=== PATIENT | female | born 1960 | race Caucasian/White ===

== ENCOUNTER 2022-12-24 07:06 | Inpatient (IN) | payer MEDICARE ==
[2022-12-24] MEDS ORDERED: ACETAMINOPHEN 325 MG TABLET (FP) PO ONE (07:57)
[2022-12-24] MEDS ORDERED: KETOROLAC TROMETHAMINE 15 MG/ML VIAL IM ONE (07:57)
[2022-12-24] MEDS ORDERED: LIDOCAINE 5% TOPICAL PATCH TP ONE (08:14)
[2022-12-24] MEDS ORDERED: LIDOCAINE 5% TOPICAL PATCH ONE (08:26)
[2022-12-24] MEDS ORDERED: morphine CARPU-JECT 4 MG/1 ML DISP.SYRIN IVPUSH ONE (09:33)
[2022-12-24] MEDS ORDERED: morphine SULFATE 4 MG/ML VIAL ONE (10:15)
[2022-12-24] MEDS ORDERED: morphine CARPU-JECT 2 MG/1 ML DISP.SYRIN IVPUSH ONE (12:24)
[2022-12-24 13:06] LABS: BASO % 0.3 % (0-2.0); EOS % 0.6 % (0-4.5); HEMATOCRIT 23.4 % (32.4-45.2); HEMOGLOBIN 8.1 GM/dL (10.7-15.3); LYMPH % 6.2 % (8-40); MCH 28.5 pg (25.7-33.7); MCHC 34.6 g/dl (32.0-36.0); MEAN CELL VOLUME 82.4 fl (80-96); MEAN PLT VOLUME 7.5 fl (7.5-11.1); MONO % 8.4 % (3.8-10.2); NEUT % 84.5 % (42.8-82.8); PLATELET COUNT 219 10^3/uL (134-434); RBC 2.84 M/mm3 (3.60-5.2); RDW 15.3 % (11.6-15.6)
[2022-12-24 13:13] LABS: INR 1.31 (0.83-1.09); PROTHROMBIN TIME (PATIENT) 15.2 SEC (9.7-13.0)
[2022-12-24 13:15] LABS: ACTIVATED PTT 28.5 SECONDS (25.2-36.5)
[2022-12-24 13:19] LABS: ALBUMIN 2.7 g/dl (3.4-5.0)
[2022-12-24 13:22] LABS: CREATININE 0.6 mg/dL (0.55-1.3)
[2022-12-24 13:24] LABS: TOT PROT 5.3 g/dl (6.4-8.2)
[2022-12-24 13:25] LABS: BLOOD UREA NITROGEN 14.2 mg/dL (7-18)
[2022-12-24] MEDS ORDERED: traMADol HCL 50 MG TABLET PO PRN (15:13)
[2022-12-24] MEDS: DEXAMETHASONE SOD PHOSPHATE 4 MG/1 ML VIAL IVPUSH SCH ×2 (16:55→21:43)
[2022-12-24] MEDS: FERROUS SO4 325 MG TABLET (FP) PO SCH (21:43)
[2022-12-24] MEDS: LIDOCAINE PATCH REMOVAL MC SCH (23:08)
[2022-12-25] MEDS ORDERED: ACETAMINOPHEN 500 MG TABLET (FP) PO PRN ×2 (07:40→10:32)
[2022-12-25] MEDS ORDERED: methylPREDNISolone 8 MG TABLET PO ONE ×2 (08:53→20:00)
[2022-12-25] MEDS ORDERED: methylPREDNISolone 4 MG TABLET PO ONE ×4 (09:30→22:00)
[2022-12-25] MEDS ORDERED: CARVEDILOL 6.25 MG TABLET (FP) PO SCH ×2 (10:00)
[2022-12-25 10:02] LABS: BASO % 0.1 % (0-2.0); EOS % 0.1 % (0-4.5); HEMATOCRIT 24.9 % (32.4-45.2); HEMOGLOBIN 8.9 GM/dL (10.7-15.3); LYMPH % 4.5 % (8-40); MCH 29.4 pg (25.7-33.7); MCHC 35.9 g/dl (32.0-36.0); MEAN CELL VOLUME 82.1 fl (80-96); MEAN PLT VOLUME 7.7 fl (7.5-11.1); MONO % 5.5 % (3.8-10.2); NEUT % 89.8 % (42.8-82.8); PLATELET COUNT 262 10^3/uL (134-434); RBC 3.04 M/mm3 (3.60-5.2); RDW 15.1 % (11.6-15.6); WHITE BLOOD COUNT 5.7 K/mm3 (4.0-10.0)
[2022-12-25] MEDS ORDERED: KETOROLAC TROMETHAMINE 30 MG/1 ML VIAL IVPUSH PRN (10:31)
[2022-12-25 10:38] LABS: CALCIUM 8.9 mg/dL (8.5-10.1)
[2022-12-25 10:39] LABS: BLOOD UREA NITROGEN 10.7 mg/dL (7-18)
[2022-12-25 10:42] LABS: CREATININE 0.6 mg/dL (0.55-1.3)
[2022-12-25] MEDS: ENOXAPARIN NA (PORCINE) 40 MG/0.4 ML DISP.SYRIN SQ SCH (11:18)
[2022-12-25] MEDS: CARVEDILOL 6.25 MG TABLET (FP) PO SCH ×2 (11:19→21:01)
[2022-12-25] MEDS: SPIRONOLACTONE 25 MG TABLET PO SCH (11:19)
[2022-12-25] MEDS: FOLIC ACID 1 MG TABLET (FP) PO SCH (11:19)
[2022-12-25] MEDS: FERROUS SO4 325 MG TABLET (FP) PO SCH ×2 (11:19→21:02)
[2022-12-25] MEDS: traMADol HCL 50 MG TABLET PO PRN (11:20)
[2022-12-25] MEDS: ENALAPRIL MALEATE 5 MG TABLET PO SCH (11:21)
[2022-12-25] MEDS: LIDOCAINE 5% TOPICAL PATCH TP SCH (11:21)
[2022-12-25] MEDS: KETOROLAC TROMETHAMINE 30 MG/1 ML VIAL IVPUSH SCH ×2 (14:27→21:02)
[2022-12-25] MEDS: ACETAMINOPHEN 500 MG TABLET (FP) PO SCH (14:29)
[2022-12-25] MEDS ORDERED: INSULIN (NOVOLOG) ASPART 100 UNITS/ML 10ML VIAL ONE (19:02)
[2022-12-25] MEDS: LIDOCAINE PATCH REMOVAL MC SCH (21:02)
[2022-12-26] MEDS: ACETAMINOPHEN 500 MG TABLET (FP) PO SCH ×5 (01:20→23:27)
[2022-12-26] MEDS: KETOROLAC TROMETHAMINE 30 MG/1 ML VIAL IVPUSH SCH ×4 (03:11→22:10)
[2022-12-26 06:35] LABS: BASO % 0.2 % (0-2.0); EOS % 0.1 % (0-4.5); HEMATOCRIT 21.7 % (32.4-45.2); HEMOGLOBIN 7.6 GM/dL (10.7-15.3); LYMPH % 5.2 % (8-40); MCH 28.9 pg (25.7-33.7); MCHC 35.1 g/dl (32.0-36.0); MEAN CELL VOLUME 82.3 fl (80-96); MEAN PLT VOLUME 8.2 fl (7.5-11.1); NEUT % 88.5 % (42.8-82.8); PLATELET COUNT 222 10^3/uL (134-434); RBC 2.63 M/mm3 (3.60-5.2); RDW 15.2 % (11.6-15.6); WHITE BLOOD COUNT 5.6 K/mm3 (4.0-10.0)
[2022-12-26] MEDS: traMADol HCL 50 MG TABLET PO PRN (06:43)
[2022-12-26 07:02] LABS: CALCIUM 8.7 mg/dL (8.5-10.1)
[2022-12-26 07:03] LABS: ALBUMIN 2.5 g/dl (3.4-5.0); BLOOD UREA NITROGEN 18.8 mg/dL (7-18)
[2022-12-26 07:06] LABS: CREATININE 0.7 mg/dL (0.55-1.3)
[2022-12-26 07:07] LABS: BILIRUBIN,TOTAL 0.8 mg/dL (0.2-1); TOT PROT 4.9 g/dl (6.4-8.2)
[2022-12-26] MEDS ORDERED: methylPREDNISolone 4 MG TABLET PO ONE ×2 (09:04→12:00)
[2022-12-26] MEDS ORDERED: morphine CARPU-JECT 2 MG/1 ML DISP.SYRIN IVPUSH PRN (09:16)
[2022-12-26] MEDS: ENOXAPARIN NA (PORCINE) 40 MG/0.4 ML DISP.SYRIN SQ SCH (10:03)
[2022-12-26] MEDS: CARVEDILOL 6.25 MG TABLET (FP) PO SCH ×2 (10:04→22:10)
[2022-12-26] MEDS: FOLIC ACID 1 MG TABLET (FP) PO SCH (10:04)
[2022-12-26] MEDS: SPIRONOLACTONE 25 MG TABLET PO SCH (10:04)
[2022-12-26] MEDS: LIDOCAINE 5% TOPICAL PATCH TP SCH (10:04)
[2022-12-26] MEDS: ENALAPRIL MALEATE 5 MG TABLET PO SCH (10:04)
[2022-12-26] MEDS: FERROUS SO4 325 MG TABLET (FP) PO SCH ×2 (10:04→22:10)
[2022-12-26] MEDS: POLYETHYLENE GLYCOL (HEALTHYLAX) 3350 17 GM PACKET PO SCH (12:23)
[2022-12-26] MEDS: COLLAGENASE CLOSTRIDIUM HIST. 30 GRAMS TUBE TP SCH (13:47)
[2022-12-26] MEDS: CYCLOBENZAPRINE HCL 5 MG TABLET PO SCH ×2 (13:47→22:10)
[2022-12-26] MEDS ORDERED: methylPREDNISolone 4 MG TABLET PO SCH (18:00)
[2022-12-26] MEDS ORDERED: methylPREDNISolone 8 MG TABLET PO ONE (22:00)
[2022-12-26] MEDS: LIDOCAINE PATCH REMOVAL MC SCH (22:11)
[2022-12-27] MEDS: KETOROLAC TROMETHAMINE 30 MG/1 ML VIAL IVPUSH SCH ×2 (02:08→08:45)
[2022-12-27] MEDS: CYCLOBENZAPRINE HCL 5 MG TABLET PO SCH ×3 (06:00→21:54)
[2022-12-27] MEDS: ACETAMINOPHEN 500 MG TABLET (FP) PO SCH ×4 (06:00→23:01)
[2022-12-27] MEDS: morphine SULFATE IMMEDIATE RELEASE 30 MG TAB PO PRN ×3 (06:50→21:53)
[2022-12-27 07:46] LABS: BASO % 0.2 % (0-2.0); EOS % 0.1 % (0-4.5); HEMATOCRIT 24.6 % (32.4-45.2); HEMOGLOBIN 8.5 GM/dL (10.7-15.3); LYMPH % 6.2 % (8-40); MCH 28.6 pg (25.7-33.7); MCHC 34.8 g/dl (32.0-36.0); MEAN CELL VOLUME 82.2 fl (80-96); MEAN PLT VOLUME 8.3 fl (7.5-11.1); MONO % 6.3 % (3.8-10.2); NEUT % 87.2 % (42.8-82.8); PLATELET COUNT 236 10^3/uL (134-434); RBC 2.99 M/mm3 (3.60-5.2); RDW 14.8 % (11.6-15.6); WHITE BLOOD COUNT 5.9 K/mm3 (4.0-10.0)
[2022-12-27 08:28] LABS: CALCIUM 8.7 mg/dL (8.5-10.1)
[2022-12-27 08:29] LABS: ALBUMIN 2.7 g/dl (3.4-5.0); BLOOD UREA NITROGEN 23.4 mg/dL (7-18)
[2022-12-27 08:31] LABS: CREATININE 0.8 mg/dL (0.55-1.3)
[2022-12-27 08:33] LABS: BILIRUBIN,TOTAL 0.5 mg/dL (0.2-1); TOT PROT 5.1 g/dl (6.4-8.2)
[2022-12-27] MEDS ORDERED: methylPREDNISolone 4 MG TABLET PO ONE ×4 (08:53→22:00)
[2022-12-27] MEDS: FOLIC ACID 1 MG TABLET (FP) PO SCH (09:38)
[2022-12-27] MEDS: POLYETHYLENE GLYCOL (HEALTHYLAX) 3350 17 GM PACKET PO SCH (09:38)
[2022-12-27] MEDS: FERROUS SO4 325 MG TABLET (FP) PO SCH ×2 (09:38→21:54)
[2022-12-27] MEDS: CARVEDILOL 6.25 MG TABLET (FP) PO SCH ×2 (09:38→21:54)
[2022-12-27] MEDS: SPIRONOLACTONE 25 MG TABLET PO SCH (09:38)
[2022-12-27] MEDS: ENALAPRIL MALEATE 5 MG TABLET PO SCH (09:39)
[2022-12-27] MEDS: ENOXAPARIN NA (PORCINE) 40 MG/0.4 ML DISP.SYRIN SQ SCH (09:45)
[2022-12-27] MEDS: LIDOCAINE 5% TOPICAL PATCH TP SCH (09:46)
[2022-12-27] MEDS: COLLAGENASE CLOSTRIDIUM HIST. 30 GRAMS TUBE TP SCH (10:31)
[2022-12-27] MEDS: traMADol HCL 50 MG TABLET PO PRN (13:18)
[2022-12-27] MEDS: NAPROXEN 375 MG TABLET PO SCH ×2 (13:41→21:53)
[2022-12-27] MEDS: LIDOCAINE PATCH REMOVAL MC SCH (21:54)
[2022-12-28] MEDS: morphine SULFATE IMMEDIATE RELEASE 30 MG TAB PO PRN ×4 (03:55→21:57)
[2022-12-28] MEDS: traMADol HCL 50 MG TABLET PO PRN ×2 (05:24→13:48)
[2022-12-28] MEDS: CYCLOBENZAPRINE HCL 5 MG TABLET PO SCH ×3 (05:24→21:57)
[2022-12-28] MEDS: ACETAMINOPHEN 500 MG TABLET (FP) PO SCH ×4 (05:25→23:05)
[2022-12-28] MEDS: methylPREDNISolone 4 MG TABLET PO SCH ×3 (05:25→21:58)
[2022-12-28 07:52] LABS: HEMATOCRIT 27.4 % (32.4-45.2); HEMOGLOBIN 9.2 GM/dL (10.7-15.3); MCHC 33.6 g/dl (32.0-36.0); MEAN CELL VOLUME 83.3 fl (80-96); MEAN PLT VOLUME 8.1 fl (7.5-11.1); PLATELET COUNT 280 10^3/uL (134-434); RBC 3.29 M/mm3 (3.60-5.2); RDW 15.4 % (11.6-15.6); WHITE BLOOD COUNT 7.7 K/mm3 (4.0-10.0)
[2022-12-28 08:15] LABS: CALCIUM 8.8 mg/dL (8.5-10.1)
[2022-12-28 08:16] LABS: BLOOD UREA NITROGEN 21.5 mg/dL (7-18)
[2022-12-28 08:18] LABS: ALBUMIN 2.8 g/dl (3.4-5.0)
[2022-12-28 08:19] LABS: CREATININE 0.7 mg/dL (0.55-1.3)
[2022-12-28 08:20] LABS: TOT PROT 5.3 g/dl (6.4-8.2)
[2022-12-28 08:21] LABS: BILIRUBIN,TOTAL 0.5 mg/dL (0.2-1)
[2022-12-28] MEDS: POLYETHYLENE GLYCOL (HEALTHYLAX) 3350 17 GM PACKET PO SCH (09:07)
[2022-12-28] MEDS: LIDOCAINE 5% TOPICAL PATCH TP SCH (09:07)
[2022-12-28] MEDS: CARVEDILOL 6.25 MG TABLET (FP) PO SCH ×2 (09:08→21:58)
[2022-12-28] MEDS: ENALAPRIL MALEATE 5 MG TABLET PO SCH (09:08)
[2022-12-28] MEDS: NAPROXEN 375 MG TABLET PO SCH ×2 (09:08→21:58)
[2022-12-28] MEDS: SPIRONOLACTONE 25 MG TABLET PO SCH (09:08)
[2022-12-28] MEDS: FERROUS SO4 325 MG TABLET (FP) PO SCH ×2 (09:08→21:57)
[2022-12-28] MEDS: ENOXAPARIN NA (PORCINE) 40 MG/0.4 ML DISP.SYRIN SQ SCH (09:08)
[2022-12-28] MEDS: FOLIC ACID 1 MG TABLET (FP) PO SCH (09:08)
[2022-12-28] MEDS: COLLAGENASE CLOSTRIDIUM HIST. 30 GRAMS TUBE TP SCH (09:09)
[2022-12-28] MEDS ORDERED: SODIUM ZIRCONIUM CYCLOSILICATE (LOKELMA) 5 GM PACKET PO ONE (14:15)
[2022-12-28] MEDS: LIDOCAINE PATCH REMOVAL MC SCH (21:58)
[2022-12-29] MEDS: morphine SULFATE IMMEDIATE RELEASE 30 MG TAB PO PRN ×4 (02:43→22:29)
[2022-12-29] MEDS: ACETAMINOPHEN 500 MG TABLET (FP) PO SCH ×4 (06:42→23:08)
[2022-12-29] MEDS: CYCLOBENZAPRINE HCL 5 MG TABLET PO SCH ×3 (06:42→22:27)
[2022-12-29] MEDS: methylPREDNISolone 4 MG TABLET PO SCH ×2 (06:44→13:13)
[2022-12-29 08:56] LABS: BASO % 0.4 % (0-2.0); EOS % 0.9 % (0-4.5); HEMATOCRIT 29.9 % (32.4-45.2); HEMOGLOBIN 10.2 GM/dL (10.7-15.3); LYMPH % 4.4 % (8-40); MCH 28.7 pg (25.7-33.7); MCHC 34.1 g/dl (32.0-36.0); MEAN CELL VOLUME 84.2 fl (80-96); MEAN PLT VOLUME 8.1 fl (7.5-11.1); MONO % 5.8 % (3.8-10.2); NEUT % 88.5 % (42.8-82.8); PLATELET COUNT 325 10^3/uL (134-434); RBC 3.55 M/mm3 (3.60-5.2); RDW 15.7 % (11.6-15.6); WHITE BLOOD COUNT 9.4 K/mm3 (4.0-10.0)
[2022-12-29 09:10] LABS: ALBUMIN 2.9 g/dl (3.4-5.0); BLOOD UREA NITROGEN 20.9 mg/dL (7-18); CALCIUM 8.6 mg/dL (8.5-10.1)
[2022-12-29 09:13] LABS: CREATININE 0.8 mg/dL (0.55-1.3)
[2022-12-29 09:15] LABS: BILIRUBIN,TOTAL 0.6 mg/dL (0.2-1); TOT PROT 5.3 g/dl (6.4-8.2)
[2022-12-29] MEDS: LIDOCAINE 5% TOPICAL PATCH TP SCH (09:33)
[2022-12-29] MEDS: POLYETHYLENE GLYCOL (HEALTHYLAX) 3350 17 GM PACKET PO SCH ×3 (09:33→22:27)
[2022-12-29] MEDS: FOLIC ACID 1 MG TABLET (FP) PO SCH (09:34)
[2022-12-29] MEDS: ENALAPRIL MALEATE 5 MG TABLET PO SCH (09:34)
[2022-12-29] MEDS: CARVEDILOL 6.25 MG TABLET (FP) PO SCH ×2 (09:34→22:27)
[2022-12-29] MEDS: FERROUS SO4 325 MG TABLET (FP) PO SCH ×2 (09:34→22:27)
[2022-12-29] MEDS: ENOXAPARIN NA (PORCINE) 40 MG/0.4 ML DISP.SYRIN SQ SCH (09:34)
[2022-12-29] MEDS: NAPROXEN 375 MG TABLET PO SCH ×2 (09:35→22:28)
[2022-12-29] MEDS: COLLAGENASE CLOSTRIDIUM HIST. 30 GRAMS TUBE TP SCH (09:36)
[2022-12-29] MEDS: SENNOSIDES 8.6MG TABLET (FP) PO SCH ×2 (11:40→22:27)
[2022-12-29] MEDS: DOCUSATE SODIUM 100 MG CAPSULE (FP) PO SCH ×2 (13:09→22:27)
[2022-12-29] MEDS: traMADol HCL 50 MG TABLET PO PRN (15:50)
[2022-12-29] MEDS ORDERED: methylPREDNISolone 4 MG TABLET PO SCH (22:00)
[2022-12-29] MEDS: LIDOCAINE PATCH REMOVAL MC SCH (22:27)
[2022-12-30] MEDS: morphine SULFATE IMMEDIATE RELEASE 30 MG TAB PO PRN ×2 (03:06→21:34)
[2022-12-30] MEDS: DOCUSATE SODIUM 100 MG CAPSULE (FP) PO SCH ×3 (06:33→21:35)
[2022-12-30] MEDS: CYCLOBENZAPRINE HCL 5 MG TABLET PO SCH ×3 (06:33→21:35)
[2022-12-30] MEDS: traMADol HCL 50 MG TABLET PO PRN (06:33)
[2022-12-30] MEDS: ACETAMINOPHEN 500 MG TABLET (FP) PO SCH ×3 (06:35→17:48)
[2022-12-30] MEDS ORDERED: methylPREDNISolone 4 MG TABLET PO ONE (09:47)
[2022-12-30 10:33] LABS: HEMATOCRIT 27.1 % (32.4-45.2); HEMOGLOBIN 9.4 GM/dL (10.7-15.3); MCH 28.8 pg (25.7-33.7); MCHC 34.7 g/dl (32.0-36.0); PLATELET COUNT 288 10^3/uL (134-434); RBC 3.26 M/mm3 (3.60-5.2); RDW 16.1 % (11.6-15.6); WHITE BLOOD COUNT 9.6 K/mm3 (4.0-10.0)
[2022-12-30] MEDS: LIDOCAINE 5% TOPICAL PATCH TP SCH (10:36)
[2022-12-30] MEDS: POLYETHYLENE GLYCOL (HEALTHYLAX) 3350 17 GM PACKET PO SCH ×2 (10:36→21:35)
[2022-12-30] MEDS: ENALAPRIL MALEATE 5 MG TABLET PO SCH (10:37)
[2022-12-30] MEDS: CARVEDILOL 6.25 MG TABLET (FP) PO SCH ×2 (10:37→21:35)
[2022-12-30] MEDS: SENNOSIDES 8.6MG TABLET (FP) PO SCH ×2 (10:38→21:36)
[2022-12-30] MEDS: FERROUS SO4 325 MG TABLET (FP) PO SCH ×2 (10:38→21:39)
[2022-12-30] MEDS: NAPROXEN 375 MG TABLET PO SCH ×2 (10:38→21:38)
[2022-12-30] MEDS: FOLIC ACID 1 MG TABLET (FP) PO SCH (10:38)
[2022-12-30] MEDS: COLLAGENASE CLOSTRIDIUM HIST. 30 GRAMS TUBE TP SCH (10:39)
[2022-12-30] MEDS: ENOXAPARIN NA (PORCINE) 40 MG/0.4 ML DISP.SYRIN SQ SCH (10:41)
[2022-12-30 11:03] LABS: CALCIUM 8.7 mg/dL (8.5-10.1)
[2022-12-30 11:04] LABS: ALBUMIN 2.7 g/dl (3.4-5.0); BLOOD UREA NITROGEN 20.8 mg/dL (7-18)
[2022-12-30 11:06] LABS: CREATININE 0.8 mg/dL (0.55-1.3)
[2022-12-30 11:07] LABS: TOT PROT 5.2 g/dl (6.4-8.2)
[2022-12-30 11:12] LABS: BILIRUBIN,TOTAL 0.5 mg/dL (0.2-1)
[2022-12-30 11:34] LABS: ANISOCYTOSIS 0; HELMET CELLS 0; HOWELL-JOLLY BODIES 0; MACROCYTOSIS 0; OVALOCYTE 0; ROULEAU 0; SICKELED CELLS 0; TARGET CELLS 0; TEAR DROP CELLS 0; TOXIC GRANULATION 0
[2022-12-30] MEDS: LIDOCAINE PATCH REMOVAL MC SCH (21:39)
[2022-12-31] MEDS: ACETAMINOPHEN 500 MG TABLET (FP) PO SCH ×2 (01:15→05:48)
[2022-12-31] MEDS: CYCLOBENZAPRINE HCL 5 MG TABLET PO SCH ×3 (05:48→21:36)
[2022-12-31] MEDS: DOCUSATE SODIUM 100 MG CAPSULE (FP) PO SCH (05:48)
[2022-12-31] MEDS: morphine SULFATE IMMEDIATE RELEASE 30 MG TAB PO PRN ×2 (07:05→21:36)
[2022-12-31] MEDS ORDERED: POLYETHYLENE GLYCOL (HEALTHYLAX) 3350 17 GM PACKET PO PRN (07:57)
[2022-12-31] MEDS ORDERED: DOCUSATE SODIUM 100 MG CAPSULE (FP) PO PRN (07:57)
[2022-12-31] MEDS ORDERED: SENNOSIDES 8.6MG TABLET (FP) PO PRN (07:57)
[2022-12-31] MEDS: LIDOCAINE 5% TOPICAL PATCH TP SCH (09:34)
[2022-12-31] MEDS: ENOXAPARIN NA (PORCINE) 40 MG/0.4 ML DISP.SYRIN SQ SCH (09:35)
[2022-12-31] MEDS: FOLIC ACID 1 MG TABLET (FP) PO SCH (09:36)
[2022-12-31] MEDS: CARVEDILOL 6.25 MG TABLET (FP) PO SCH ×2 (09:36→21:37)
[2022-12-31] MEDS: FERROUS SO4 325 MG TABLET (FP) PO SCH ×2 (09:36→21:36)
[2022-12-31] MEDS: ENALAPRIL MALEATE 5 MG TABLET PO SCH (09:37)
[2022-12-31] MEDS: COLLAGENASE CLOSTRIDIUM HIST. 30 GRAMS TUBE TP SCH (09:38)
[2022-12-31] MEDS: traMADol HCL 50 MG TABLET PO PRN (17:11)
[2022-12-31] MEDS: LIDOCAINE PATCH REMOVAL MC SCH (21:37)
[2023-01-01] MEDS: morphine SULFATE IMMEDIATE RELEASE 30 MG TAB PO PRN ×4 (02:05→17:16)
[2023-01-01] MEDS: traMADol HCL 50 MG TABLET PO PRN (04:21)
[2023-01-01] MEDS: CYCLOBENZAPRINE HCL 5 MG TABLET PO SCH ×3 (06:04→22:58)
[2023-01-01] MEDS: LIDOCAINE 5% TOPICAL PATCH TP SCH (09:12)
[2023-01-01] MEDS: ENOXAPARIN NA (PORCINE) 40 MG/0.4 ML DISP.SYRIN SQ SCH (09:12)
[2023-01-01] MEDS: FERROUS SO4 325 MG TABLET (FP) PO SCH ×2 (09:13→22:57)
[2023-01-01] MEDS: FOLIC ACID 1 MG TABLET (FP) PO SCH (09:13)
[2023-01-01] MEDS: ENALAPRIL MALEATE 5 MG TABLET PO SCH (09:13)
[2023-01-01] MEDS: CARVEDILOL 6.25 MG TABLET (FP) PO SCH ×2 (09:13→22:58)
[2023-01-01] MEDS: COLLAGENASE CLOSTRIDIUM HIST. 30 GRAMS TUBE TP SCH (13:05)
[2023-01-01] MEDS: ACETAMINOPHEN 500 MG TABLET (FP) PO PRN (22:57)
[2023-01-01] MEDS: LIDOCAINE PATCH REMOVAL MC SCH (23:01)
[2023-01-02] MEDS: CYCLOBENZAPRINE HCL 5 MG TABLET PO SCH ×3 (05:36→22:35)
[2023-01-02] MEDS: ACETAMINOPHEN 500 MG TABLET (FP) PO PRN (05:36)
[2023-01-02] MEDS: morphine SULFATE IMMEDIATE RELEASE 30 MG TAB PO PRN (10:23)
[2023-01-02] MEDS: FERROUS SO4 325 MG TABLET (FP) PO SCH ×2 (10:24→22:35)
[2023-01-02] MEDS: ENALAPRIL MALEATE 5 MG TABLET PO SCH (10:24)
[2023-01-02] MEDS: FOLIC ACID 1 MG TABLET (FP) PO SCH (10:24)
[2023-01-02] MEDS: CARVEDILOL 6.25 MG TABLET (FP) PO SCH ×2 (10:24→22:35)
[2023-01-02] MEDS: ENOXAPARIN NA (PORCINE) 40 MG/0.4 ML DISP.SYRIN SQ SCH (10:25)
[2023-01-02] MEDS: LIDOCAINE 5% TOPICAL PATCH TP SCH (10:25)
[2023-01-02] MEDS: COLLAGENASE CLOSTRIDIUM HIST. 30 GRAMS TUBE TP SCH (10:25)
[2023-01-02] MEDS: traMADol HCL 50 MG TABLET PO PRN (20:46)
[2023-01-02] MEDS: LIDOCAINE PATCH REMOVAL MC SCH (23:12)
[2023-01-03] MEDS: morphine SULFATE IMMEDIATE RELEASE 30 MG TAB PO PRN ×2 (00:47→16:47)
[2023-01-03] MEDS: traMADol HCL 50 MG TABLET PO PRN (06:21)
[2023-01-03] MEDS: CYCLOBENZAPRINE HCL 5 MG TABLET PO SCH ×3 (06:21→22:59)
[2023-01-03] MEDS: CARVEDILOL 6.25 MG TABLET (FP) PO SCH ×2 (09:24→22:59)
[2023-01-03] MEDS: LIDOCAINE 5% TOPICAL PATCH TP SCH (09:24)
[2023-01-03] MEDS: FOLIC ACID 1 MG TABLET (FP) PO SCH (09:24)
[2023-01-03] MEDS: FERROUS SO4 325 MG TABLET (FP) PO SCH ×2 (09:24→23:00)
[2023-01-03] MEDS: ENOXAPARIN NA (PORCINE) 40 MG/0.4 ML DISP.SYRIN SQ SCH (09:25)
[2023-01-03] MEDS: ENALAPRIL MALEATE 5 MG TABLET PO SCH (09:25)
[2023-01-03] MEDS: COLLAGENASE CLOSTRIDIUM HIST. 30 GRAMS TUBE TP SCH (09:50)
[2023-01-03 12:40] VITALS: BMI 24.2
[2023-01-03] MEDS ORDERED: SODIUM CHLORIDE 250 ML IV STA (17:51)
[2023-01-03] MEDS: LIDOCAINE PATCH REMOVAL MC SCH (23:00)
[2023-01-04] MEDS: morphine SULFATE IMMEDIATE RELEASE 30 MG TAB PO PRN ×2 (01:46→06:28)
[2023-01-04] MEDS: traMADol HCL 50 MG TABLET PO PRN ×2 (05:01→10:32)
[2023-01-04] MEDS: CYCLOBENZAPRINE HCL 5 MG TABLET PO SCH ×3 (06:30→21:16)
[2023-01-04] MEDS: ENOXAPARIN NA (PORCINE) 40 MG/0.4 ML DISP.SYRIN SQ SCH (10:31)
[2023-01-04] MEDS: FERROUS SO4 325 MG TABLET (FP) PO SCH ×2 (10:32→21:16)
[2023-01-04] MEDS: CARVEDILOL 6.25 MG TABLET (FP) PO SCH ×2 (10:32→21:17)
[2023-01-04] MEDS: ENALAPRIL MALEATE 5 MG TABLET PO SCH (10:32)
[2023-01-04] MEDS: LIDOCAINE 5% TOPICAL PATCH TP SCH (10:33)
[2023-01-04] MEDS: COLLAGENASE CLOSTRIDIUM HIST. 30 GRAMS TUBE TP SCH (10:33)
[2023-01-04] MEDS: FOLIC ACID 1 MG TABLET (FP) PO SCH (10:33)
[2023-01-04] MEDS: ACETAMINOPHEN 500 MG TABLET (FP) PO PRN (13:25)
[2023-01-04] MEDS ORDERED: SODIUM CHLORIDE 500 ML IV STA (21:10)
[2023-01-04] MEDS: LIDOCAINE PATCH REMOVAL MC SCH (21:50)
[2023-01-04] MEDS ORDERED: morphine SULFATE IMMEDIATE RELEASE 30 MG TAB PO ONE (23:22)
[2023-01-05] MEDS: NAPROXEN 375 MG TABLET PO PRN ×3 (01:30→16:28)
[2023-01-05] MEDS: CYCLOBENZAPRINE HCL 5 MG TABLET PO SCH ×3 (06:36→21:13)
[2023-01-05] MEDS: ENOXAPARIN NA (PORCINE) 40 MG/0.4 ML DISP.SYRIN SQ SCH (09:51)
[2023-01-05] MEDS: LIDOCAINE 5% TOPICAL PATCH TP SCH (09:51)
[2023-01-05] MEDS: ENALAPRIL MALEATE 5 MG TABLET PO SCH (09:52)
[2023-01-05] MEDS: FOLIC ACID 1 MG TABLET (FP) PO SCH (09:52)
[2023-01-05] MEDS: COLLAGENASE CLOSTRIDIUM HIST. 30 GRAMS TUBE TP SCH (09:52)
[2023-01-05] MEDS: CARVEDILOL 6.25 MG TABLET (FP) PO SCH ×2 (09:52→21:13)
[2023-01-05] MEDS: FERROUS SO4 325 MG TABLET (FP) PO SCH ×2 (09:52→21:13)
[2023-01-05] MEDS: ACETAMINOPHEN 500 MG TABLET (FP) PO PRN ×3 (13:05→18:59)
[2023-01-05] MEDS: LIDOCAINE PATCH REMOVAL MC SCH (21:13)
[2023-01-06] MEDS: CYCLOBENZAPRINE HCL 5 MG TABLET PO SCH ×3 (06:17→21:36)
[2023-01-06] MEDS: ACETAMINOPHEN 500 MG TABLET (FP) PO PRN ×2 (09:15→19:08)
[2023-01-06] MEDS: FERROUS SO4 325 MG TABLET (FP) PO SCH ×2 (10:45→21:36)
[2023-01-06] MEDS: ENOXAPARIN NA (PORCINE) 40 MG/0.4 ML DISP.SYRIN SQ SCH (10:45)
[2023-01-06] MEDS: LIDOCAINE 5% TOPICAL PATCH TP SCH (10:45)
[2023-01-06] MEDS: CARVEDILOL 6.25 MG TABLET (FP) PO SCH ×2 (10:45→21:37)
[2023-01-06] MEDS: FOLIC ACID 1 MG TABLET (FP) PO SCH (10:45)
[2023-01-06] MEDS: NAPROXEN 375 MG TABLET PO PRN (10:46)
[2023-01-06] MEDS: COLLAGENASE CLOSTRIDIUM HIST. 30 GRAMS TUBE TP SCH (10:53)
[2023-01-06] MEDS: ENALAPRIL MALEATE 5 MG TABLET PO SCH (11:44)
[2023-01-06] MEDS: traMADol HCL 50 MG TABLET PO PRN ×2 (14:34→21:36)
[2023-01-06] MEDS: LIDOCAINE PATCH REMOVAL MC SCH (21:44)
[2023-01-07] MEDS: traMADol HCL 50 MG TABLET PO PRN ×3 (02:36→17:45)
[2023-01-07] MEDS: CYCLOBENZAPRINE HCL 5 MG TABLET PO SCH ×3 (06:10→22:06)
[2023-01-07] MEDS: NAPROXEN 375 MG TABLET PO PRN (09:00)
[2023-01-07] MEDS: LIDOCAINE 5% TOPICAL PATCH TP SCH (10:45)
[2023-01-07] MEDS: FOLIC ACID 1 MG TABLET (FP) PO SCH (10:45)
[2023-01-07] MEDS: FERROUS SO4 325 MG TABLET (FP) PO SCH ×2 (10:46→22:05)
[2023-01-07] MEDS: CARVEDILOL 6.25 MG TABLET (FP) PO SCH ×2 (10:46→22:04)
[2023-01-07] MEDS: ENOXAPARIN NA (PORCINE) 40 MG/0.4 ML DISP.SYRIN SQ SCH (10:47)
[2023-01-07] MEDS: ENALAPRIL MALEATE 5 MG TABLET PO SCH (10:47)
[2023-01-07] MEDS: COLLAGENASE CLOSTRIDIUM HIST. 30 GRAMS TUBE TP SCH (10:47)
[2023-01-07] MEDS ORDERED: INSULIN (NOVOLOG) ASPART 100 UNITS/ML 10ML VIAL ONE (17:17)
[2023-01-07] MEDS ORDERED: ACETAMINOPHEN 1000 MG/100 ML BAG IVPB PRN (22:00)
[2023-01-07] MEDS: oxyCODONE HCL 5 MG TABLET PO PRN (22:05)
[2023-01-07] MEDS: LIDOCAINE PATCH REMOVAL MC SCH (22:06)
[2023-01-08] MEDS: traMADol HCL 50 MG TABLET PO PRN ×2 (05:44→13:20)
[2023-01-08] MEDS: CYCLOBENZAPRINE HCL 5 MG TABLET PO SCH ×3 (05:50→23:11)
[2023-01-08 07:50] LABS: BASO % 0.4 % (0-2.0); EOS % 1.1 % (0-4.5); HEMATOCRIT 25.2 % (32.4-45.2); HEMOGLOBIN 8.3 GM/dL (10.7-15.3); LYMPH % 6.1 % (8-40); MCH 26.7 pg (25.7-33.7); MCHC 32.9 g/dl (32.0-36.0); MEAN CELL VOLUME 81.3 fl (80-96); MEAN PLT VOLUME 7.4 fl (7.5-11.1); MONO % 7.9 % (3.8-10.2); NEUT % 84.5 % (42.8-82.8); PLATELET COUNT 279 10^3/uL (134-434); RBC 3.11 M/mm3 (3.60-5.2); RDW 16.5 % (11.6-15.6); WHITE BLOOD COUNT 5.4 K/mm3 (4.0-10.0)
[2023-01-08 08:21] LABS: BLOOD UREA NITROGEN 18.7 mg/dL (7-18); CALCIUM 9.5 mg/dL (8.5-10.1); MAGNESIUM 1.8 mg/dL (1.8-2.4)
[2023-01-08 08:25] LABS: CREATININE 0.5 mg/dL (0.55-1.3)
[2023-01-08] MEDS: FERROUS SO4 325 MG TABLET (FP) PO SCH ×2 (10:22→23:11)
[2023-01-08] MEDS: ENOXAPARIN NA (PORCINE) 40 MG/0.4 ML DISP.SYRIN SQ SCH (10:23)
[2023-01-08] MEDS: CARVEDILOL 6.25 MG TABLET (FP) PO SCH ×2 (10:23→23:11)
[2023-01-08] MEDS: FOLIC ACID 1 MG TABLET (FP) PO SCH (10:23)
[2023-01-08] MEDS: LIDOCAINE 5% TOPICAL PATCH TP SCH (10:23)
[2023-01-08] MEDS: ENALAPRIL MALEATE 5 MG TABLET PO SCH (10:23)
[2023-01-08] MEDS: COLLAGENASE CLOSTRIDIUM HIST. 30 GRAMS TUBE TP SCH (10:28)
[2023-01-08] MEDS: oxyCODONE HCL 5 MG TABLET PO PRN (17:47)
[2023-01-08] MEDS: LIDOCAINE PATCH REMOVAL MC SCH (23:48)
[2023-01-09] MEDS: oxyCODONE HCL 5 MG TABLET PO PRN ×3 (01:30→15:18)
[2023-01-09] MEDS: CYCLOBENZAPRINE HCL 5 MG TABLET PO SCH ×2 (06:37→15:18)
[2023-01-09] MEDS: traMADol HCL 50 MG TABLET PO PRN (07:48)
[2023-01-09] MEDS: ENOXAPARIN NA (PORCINE) 40 MG/0.4 ML DISP.SYRIN SQ SCH (09:44)
[2023-01-09] MEDS: FOLIC ACID 1 MG TABLET (FP) PO SCH (09:45)
[2023-01-09] MEDS: FERROUS SO4 325 MG TABLET (FP) PO SCH (09:45)
[2023-01-09] MEDS: CARVEDILOL 6.25 MG TABLET (FP) PO SCH (09:46)
[2023-01-09] MEDS: COLLAGENASE CLOSTRIDIUM HIST. 30 GRAMS TUBE TP SCH (09:47)
[2023-01-09] MEDS: LIDOCAINE 5% TOPICAL PATCH TP SCH (09:48)
[2023-01-09 10:39] LABS: BASO % 0.6 % (0-2.0); EOS % 1.6 % (0-4.5); HEMATOCRIT 24.1 % (32.4-45.2); HEMOGLOBIN 8.2 GM/dL (10.7-15.3); LYMPH % 6.8 % (8-40); MCHC 34.1 g/dl (32.0-36.0); MEAN PLT VOLUME 7.6 fl (7.5-11.1); MONO % 6.6 % (3.8-10.2); NEUT % 84.4 % (42.8-82.8); PLATELET COUNT 293 10^3/uL (134-434); RBC 2.93 M/mm3 (3.60-5.2); RDW 17.1 % (11.6-15.6); WHITE BLOOD COUNT 4.7 K/mm3 (4.0-10.0)
[2023-01-09 10:58] LABS: CALCIUM 9.2 mg/dL (8.5-10.1)
[2023-01-09 10:59] LABS: BLOOD UREA NITROGEN 18.2 mg/dL (7-18); MAGNESIUM 1.6 mg/dL (1.8-2.4)
[2023-01-09 11:02] LABS: CREATININE 0.6 mg/dL (0.55-1.3); PHOSPHOROUS 3.6 mg/dL (2.5-4.9)
[2023-01-09] MEDS ORDERED: GLYCERIN 1 RECTAL SUPPOSITORY, ADULT RC ONE (12:26)
[2023-01-09 14:36] VITALS: BP 121/61; PULSE 89; TEMP 98.2
[2023-01-09 14:59] VITALS: RESP 20
== END 2023-01-09 16:15 | DRG 552 ==
LOC: JER 07:06 → JERBED 13:14 → INTOOBSV 13:14 → UNDOADMOB 13:14 → JERBED 15:11 → J7W 16:09 → OBSVTOIN 12-27 14:41
PROVIDERS: ADMIT Internal Medicine; ATTEND Internal Medicine
DX: M47.27 Other spondylosis with radiculopathy, lumbosacral region (principal); M51.16 Intervertebral disc disorders with radiculopathy, lumbar region; I11.0 Hypertensive heart disease with heart failure; D50.9 Iron deficiency anemia, unspecified; E78.5 Hyperlipidemia, unspecified; G89.29 Other chronic pain; R29.6 Repeated falls; M21.371 Foot drop, right foot; M48.02 Spinal stenosis, cervical region; I50.9 Heart failure, unspecified
CPT/HCPCS: 0241U-QW; 36415; 72070-TC-FY; 72100-TC-FY; 72131-TC; 72141-TC; 72146-TC; 72148-TC; 80048; 80053; 82272; 83735; 84100; 85025; 85027; 85610; 85730; 86850; 86900; 86901; 93005; 93010; 97116-GP; 97162-GP; 99285-25; C9803-CS; G0378; U0003; U0005